=== PATIENT | male | born 1990 | race Asian ===

== ENCOUNTER 2016-08-20 13:24 | Emergency (ER) | payer MEDICAID ==
[~2016-08-20] VITALS: Ht 177.8 cm; Wt 72.6 kg
[2016-08-20] MEDS ORDERED: Tubing IV Cassette IV ONE (14:15)
[2016-08-20] MEDS ORDERED: Metoclopramide 10mg/2ml Inj IVP ONE (14:15)
[2016-08-20] MEDS ORDERED: Morphine Sulfate 4mg/ml Inj IVP ONE (14:15)
--- NOTE | 2016-08-20 14:16 | Emergency Room Report ---
History of Present Illness General Chief Complaint: Abdominal Pain Source: Patient Present Illness HPI Patient present with complaints of epigastric abdominal pain Nausea vomiting since yesterday Patient also complains of diarrhea He feels that when he lays back down flat pain goes towards his mid back area He complains of a subjective fever Denies any chest pain or shortness of breath Rates the pain as 6/10 sharp and shooting Denies any fall or trauma Allergies: Coded Allergies: Animal Dander (Unverified Allergy, Unknown, 12/09/14) Patient History Past Medical History: see triage record Pertinent Family History: none Reviewed Nursing Documentation: PMH: Agreed, PSxH: Agreed Nursing Documentation-PMH Past Medical History: No Stated History Review of Systems All Other Systems: negative except mentioned in HPI Physical Exam Vital Signs Date Time Temp Pulse Resp B/P Pulse Ox O2 Delivery O2 Flow Rate FiO2 08/20/16 13:51 99.3 128 18 119/77 97 Room Air Sp02 EP Interpretation: reviewed, normal General Appearance: no apparent distress Head: normocephalic, atraumatic Eyes: bilateral eye EOMI, bilateral eye PERRL ENT: hearing grossly normal, normal pharynx, TMs + canals normal, uvula midline Neck: full range of motion, supple, no meningismus, no bony tend Respiratory: lungs clear, normal breath sounds, no rhonchi, no respiratory distress, no retraction, no accessory muscle use Cardiovascular #1: normal peripheral pulses, regular rate, rhythm, no edema, no gallop, no JVD, no murmur Gastrointestinal: normal bowel sounds, no organomegaly, non-distended, no guarding, no hernia, no pulsatile mass, no rebound, tenderness - Epigastric area Genitourinary: no CVA tenderness Neurologic: oriented x3, responsive, 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 III-XII nml as tested, motor strength/ tone normal, sensory intact Psychiatric: mood/affect normal Skin: normal color, no rash, warm/dry, palpation normal Lymphatic: normal inspection, no adenopathy Medical Decision Making Diagnostic Impression: Primary Impression: Abdominal pain ER Course With the history exam and presentation, multiple differentials considered, including but not limited to appendicitis, gastritis, cholecystitis, diverticulitis Patient's blood work is at baseline levels we did obtain ultrasound which was negative Patient remains clinically stable repeat abdominal exam is soft and the patient is appropriate for initial conservative outpatient trial CBC shows a white blood for count normal 90% neutrophils which is high Chemistry normal Liver function test negative CT/MRI/US Diagnostic Results CT/MRI/US Diagnostic Results : Impression Abdominal ultrasound: no acute disease Last Vital Signs Date Time Temp Pulse Resp B/P Pulse Ox O2 Delivery O2 Flow Rate FiO2 08/20/16 13:51 99.3 128 18 119/77 97 Room Air Status: improved Disposition: HOME, SELF-CARE Condition: Improved Scripts Famotidine (PEPCID) 40 Mg Tablet 40 MG PO DAILY, #7 TAB 0 Refills Prov: JESUS GARCIA D.O. 08/20/16 Additional Instructions: Patient is provided with the discharge instructions notified to follow up with primary doctor in the next 2-3 days otherwise return to the er with any worsening symptoms. Please note that this report is being documented using [employer] technology. This can lead to erroneous entry secondary to incorrect interpretation by the dictating instrument. JESUS GARCIA D.O. Aug 20, 2016 14:16
[2016-08-20 14:54] LABS: MEAN CORPUSCULAR HGB CONC 33.6 G/DL (32.0-36.0); MEAN CORPUSCULAR VOLUME 86 FL (80-99); PLATELET COUNT 172 K/UL (150-450); RED BLOOD COUNT 5.98 M/UL (4.70-6.10); RED CELL DISTRIBUTION WIDTH 11.5 % (11.6-14.8); WHITE BLOOD COUNT 9.1 K/UL (4.8-10.8)
[2016-08-20 15:22] LABS: ALANINE AMINOTRANSFERASE 41 U/L (3-41); ALBUMIN/GLOBULIN RATIO 1.7 (1.0-2.7); ANION GAP 18 (5-15); ASPARTATE AMINO TRANSFERASE 29 U/L (5-40); CALCIUM 9.6 mg/dL (8.6-10.2); CARBON DIOXIDE 24 mEQ/L (20-30); CHLORIDE 97 mEQ/L (98-107); CREATININE 0.9 mg/dL (0.7-1.2); GLOMERULAR FILTRATION RATE > 60 mL/min (>60); HEMOLYSIS 8; LIPASE 24 U/L (< 60); POTASSIUM 3.5 mEQ/L (3.4-4.9); SODIUM 139 mEQ/L (135-145); TOTAL PROTEIN 7.9 g/dL (6.6-8.7)
[2016-08-20 15:47] LABS: BASOPHILS % (MANUAL) 1 % (0-2); LYMPHOCYTES % (MANUAL) 5 % (20-45); NEUTROPHILS % (MANUAL) 90 % (45-75); PLATELET MORPHOLOGY NORMAL; TOTAL CELLS COUNTED 100
[2016-08-20 15:48] LABS: BAND NEUTROPHILS % (MANUAL) 0 % (0-8); EOSINOPHILS % (MANUAL) 0 % (0-3); PLATELET ESTIMATE ADEQUATE
[2016-08-20] MEDS ORDERED: PEPCID40 MG PO (16:35)
--- NOTE | 2016-08-20 16:45 | Diagnostic Imaging Report ---
Indication: Abdominal pain, back pain, nausea, vomiting Technique: Back-scale and duplex images of the upper abdomen were obtained Comparison: Findings: . Gallbladder is unremarkable, without stones, wall thickening, nor pericholecystic fluid. Sonographic Hanson's sign is negative. Common bile duct measures 5 mm in diameter. No intrahepatic biliary ductal dilatation. Liver demonstrates diffusely increased echogenicity, consistent with diffuse hepatocellular disease, most likely fatty change. Focal sparing is seen in the usual location adjacent to the gallbladder fossa.. Portal vein and hepatic veins are patent.. Pancreas is incompletely visualized due to overlying bowel gas, visualized portions are unremarkable. The spleen is enlarged, measuring 14 cm long axis dimension. Left kidney measures 12.2 cm in length. Right kidney measures 12 cm length. Both kidneys demonstrate normal echogenicity. There is no hydronephrosis. No focal abnormality. . Non-aneurysmal abdominal aorta. Impression: Negative for gallstones or dilated ducts Liver demonstrates diffusely increased echogenicity, consistent with diffuse hepatocellular disease, most likely fatty change. Note suboptimal visualization of the pancreas
[2016-08-20 17:00] VITALS: BP 113/70
== END 2016-08-20 17:10 | disposition home or self-care (01) ==
LOC: EDUNIT# 14:33 → EMR 14:33
DX: R10.13 Epigastric pain (principal); R11.2 Nausea with vomiting, unspecified; R19.7 Diarrhea, unspecified; R50.9 Fever, unspecified
CPT/HCPCS: 36415; 76700; 80053; 83690; 85007; 85025; 96360; 96374; 96375; 99284; J2270; J2765